=== PATIENT | female | born 1980 | race African-American/Black ===

== ENCOUNTER 2023-10-22 11:05 | Emergency (ER) | payer BC ==
[~2023-10-22] VITALS: Ht 157.5 cm; Wt 73.0 kg
[2023-10-22 11:07] VITALS: O2SAT 100
[2023-10-22 12:00] LABS: BASOPHILS % 0.5 % (0.0-2.0); EOSINOPHILS % 3.3 % (0.0-5.0); HEMATOCRIT. 41.2 % (36.0-48.0); HEMOGLOBIN. 13.7 g/dL (12.0-16.0); LYMPHOCYTES % 33.4 % (20.0-50.0); MEAN CORPUSCULAR HEMOGLOBIN 30.2 pg (28.0-32.0); MEAN CORPUSCULAR HGB CONC 33.1 g/dL (31.0-37.0); MEAN CORPUSCULAR VOLUME 91.2 fL (81.0-99.0); MEAN PLATELET VOLUME 8.6 fl (7.4-10.4); MONOCYTES % 8.2 % (2.0-8.0); NEUTROPHILS % 54.6 % (40.0-76.0); PLATELET 294 x1000/uL (130-400); RED BLOOD CELL COUNT 4.52 mill/uL (4.2-5.4); RED CELL DISTRIBUTION WIDTH 14.3 % (11.6-14.6); WHITE BLOOD COUNT 7.9 x1000/uL (4.5-11.0)
[2023-10-22] MEDS: SODIUM CHLORIDE 0.9% 1,000 ML IV ONE (12:03)
[2023-10-22] MEDS: MORPHINE SULFATE 4 MG/ML INJ (FOR IV/IM USE) IV STA (12:03)
[2023-10-22] MEDS: ASPIRIN 81MG TABLET PO ONE (12:03)
[2023-10-22 12:07] LABS: CHLORIDE 108 mEq/L (98-107); POTASSIUM 3.4 mEq/L (3.5-5.1); SODIUM 142 mEq/L (136-145)
[2023-10-22 12:08] LABS: CALCIUM 8.4 mg/dL (8.7-10.4); CARBON DIOXIDE 26 mEq/L (21-32)
[2023-10-22 12:13] LABS: CREATININE 0.7 mg/dL (0.6-1.0); GLUCOSE 103 mg/dL (70-105); UREA NITROGEN BLOOD 5 mg/dL (9-23)
[2023-10-22 12:21] LABS: HCG SCREEN NEGATIVE
[2023-10-22 12:49] LABS: TROPONIN I HIGH SENSITIVITY 323 ng/L (3.0-34)
[2023-10-22 13:47] VITALS: BP 158/88; PULSE 76; RESP 14; TEMP 98.9
== END 2023-10-22 15:47 | disposition left against medical advice (07) ==
LOC: ER 11:05 → CANBEDREQ 14:32 → ER 15:47
DX: R07.89 Other chest pain (principal); R79.89 Other specified abnormal findings of blood chemistry; I25.2 Old myocardial infarction; I10 Essential (primary) hypertension
CPT/HCPCS: 80048; 84703; 83880; 85025; 84484; 36415; 71045; 93005; 96374; 99285; Z7610; J2270; J7030